=== PATIENT | female | born 1930 | race Caucasian/White ===

== ENCOUNTER 2016-12-01 08:25 | Inpatient (IN) | payer MEDICARE ==
[2016-11-25 13:19] LABS: BASOPHILS 0.9 %; BASOPHILS ABSOLUTE 0.05 10/3/uL (0.0-0.16); EOSINOPHILS 3.8 %; HEMATOCRIT 35.8 % (36.0-48.0); HEMOGLOBIN 11.4 g/dL (12.0-16.0); IMMATURE GRANULOCYTES 0.2 %; IMMATURE GRANULOCYTES ABSOLUTE 0.01 10/3/uL (0.0-0.11); LYMPHOCYTES ABSOLUTE 2.38 10/3/uL (0.67-4.30); MANUAL DIFF NO %; MEAN CORPUS HGB CONC 31.8 g/dL (32.0-36.0); MEAN CORPUSCULAR VOLUME 94.2 fL (80-100); MEAN PLATELET VOLUME 11.9 fL (9.2-13.0); MONOCYTES 14.9 %; MONOCYTES ABSOLUTE 0.79 10/3/uL (0.21-1.20); NEUTROPHILS 35.2 %; NEUTROPHILS ABSOLUTE 1.86 10/3/uL (2.02-8.40); PLATELET COUNT 224 10/3/uL (150-400); RBC DISTRIBUTION WIDTH 15.4 % (12.0-16.0); WHITE BLOOD CELLS 5.3 10/3/uL (4.5-10.5)
[2016-11-25 13:20] LABS: INTERNATIONAL NORMAL RATI 1.6 UNITS (-); PROTIME (NOT ORD) 18.5 SEC (12.0-14.5)
[2016-11-25 13:35] LABS: B NATRIURETIC PEPTIDE (BNP) 463.9 PG/ML (< 100.0)
[2016-11-25 14:17] LABS: ALBUMIN 3.9 G/DL (3.5-5.0); ALKALINE PHOSPHATASE 90 U/L (45-117); ASCORBIC ACID (UR NOT ORDER) NEG (NEG); BILIRUBIN, URINE NEGATIVE (NEG); BUN (BLOOD UREA NITROGEN) 27 MG/DL (6-23); CALCIUM, SERUM 9.3 MG/DL (8.5-10.4); CHLORIDE, SERUM 99 MMOL/L (96-112); CO2 (CARBON DIOXIDE) 28 MMOL/L (24-34); CREATININE 1.14 MG/DL (0.55-1.02); GFR AFRICAN AMERICAN 50 ML/MIN (>=60); GFR NON AFRICAN AMERICAN 43 ML/MIN (>=60); GLOBULIN 3.9 G/DL (2.5-4.1); GLUCOSE, SERUM 101 MG/DL (60-99); KETONE, URINE NEGATIVE (NEG); LEUKOCYTE ESTERASE(NOT OR NEG (NEG); POTASSIUM, SERUM 4.1 MMOL/L (3.5-5.3); SGOT(AST) 24 U/L (5-40); SGPT(ALT) 17 U/L (5-65); SODIUM, SERUM 138 MMOL/L (135-148); TOTAL PROTEIN 7.8 G/DL (6.0-8.5); WBC (NOT ORDERED) (RFLEX) 1 (0-5)
--- NOTE | ~2016-12-01 | OP ---
Record Of Operation [facility] [address] [place]. [address] NAME: LOC FIORE : [birth year] STATUS : ADM IN PAT#: [id number] AGE: 86 ADM/REG DATE : 12/01/16 MR#: [id number] REPORT SERV DATE: 12/01/16 DICTATED BY: CODEY MORALES DATE: 12/01/16 REPORT STATUS : Draft TRANSCRIBED BY: MARIO DATE: 12/01/16 DATE OF PROCEDURE: TAVR NOTE PROCEDURE: Right transfemoral transcatheter aortic valve replacement using Otero 23 mm S3 valve. INDICATION FOR PROCEDURE: Ms. Loc Fiore is an 86-year-old woman with severe aortic stenosis. She also has history of hyperlipidemia, atrial fibrillation, prior anterior infarct, coronary artery disease, and hypertension. Her aortic valve area by echocardiogram was 0.9, by catheterization the valve area was 0.6. The peak gradient was 38 by catheterization, peak gradient 44 by echocardiogram. She was seen by Dr. Trivedi and Dr. Fish. Dr. Fish felt she was a high risk for surgical aortic valve replacement. She was thus referred for the transcatheter aortic valve replacement. She presented to [place] [facility] [employer] class 4 symptoms. Her predicted mortality with STS score is 7.1%, predicted morbidity mortality of 25%, predicted mortality by the EuroSCORE is 4.2%. POSTOPERATIVE DIAGNOSES: Successful implantation of the Otero 26 mm S3 valve via the right transfemoral approach. OPERATORS: 1. Cong Fish M.D. 2. Codey Morales M.D. 3. Regino Alvarez M.D. OPERATIVE TECHNIQUE: The patient was prepped and draped in the usual sterile fashion. She received propofol, MAC, anesthesia. She was not intubated. She had a right heart catheter in position and a radial A-line. She did not have a Bowman catheter. The right groin and left groin were anesthetized with lidocaine 1% 12 mL. Access to both arteries were obtained using micropuncture technique, angiogram confirmed access to common femoral arteries. The 6-[place] sheaths were placed in both arteries, as well as a 6-[place] sheath in the left femoral vein. A pacemaker was placed through the left femoral vein to allow rapid ventricular pacing. A pigtail was placed in the left femoral artery to allow valve positioning. Two ProGlide sutures were placed in the right femoral artery at the 10 o'clock and 2 o'clock position in the pre-close technique. The 6-[place]atorial [place] was replaced, multipurpose catheter was delivered over a J-wire, that was exchanged for a Lunderquist wire. We then removed the 6- [place] sheath and placed the Otero sheath. She received heparin IV before placement of that sheath, activating clotting time remained therapeutic. Record Of Operation [place] [id number] [place]. [address] NAME: LOC FIORE : [birth year] STATUS : ADM IN PAT#: [id number] AGE: 86 ADM/REG DATE : 12/01/16 MR#: [id number] REPORT SERV DATE: 12/01/16 DICTATED BY: CODEY MORALES DATE: 12/01/16 REPORT STATUS : Draft TRANSCRIBED BY: MARIO DATE: 12/01/16 We crossed the aortic valve without difficulty using an AL1 diagnostic catheter and a straight wire. The valve was exchanged for a [place] double-lumen catheter over exchange length J-wire. Simultaneous pressures were obtained between the left ventricle and ascending aorta. We then placed the valve. The valve was positioned precisely. With rapid ventricular pacing, the valve was deployed. There was mild AI after placing the valve. An additional 2 mL of contrast were placed in that valve delivery balloon. The valve delivery balloon was placed through the valve, and with rapid ventricular pacing, the balloon was inflated. Repeat echocardiogram demonstrated no aortic insufficiency after that post deployment inflation. The right femoral artery sheath was removed, both ProGlide sutures were tightened. Completion of angiogram demonstrated no stenosis and no extravasation. The left femoral artery sheath was removed, and that artery was closed with a ProGlide device as well. The pacemaker was left in place. The total rapid pacing time was 40 seconds. The actual time of valve deployment was at 13:27. The cardiac output pre-deployment is 3.5 L/min, post-deployment 4 L/minute. The valve area pre-deployment is 0.9 cm2, post-deployment 2.8 cm2. The blood pressure pre- deployment was 124/44, mean of 69, heart rate 58. Post-deployment blood pressure was 118/45, mean of 70, heart rate, 60. The valve gradient pre-deployment was 36 mmHg mean, 38 mm peak to peak. Post-deployment, the mean gradient was 6, the peak to peak gradient 2 mmHg. Total contrast volume is 70 mL. Total fluoro time was 10.5 minutes. The blood loss was less than 50 mL. Total radiation dose was 844 mGy. The AI index was 34. There was no aortic insufficiency by chest wall echo or by thoracic aortogram. In short, the patient had deployment of the Otero 26 mm S3 valve with a right transfemoral approach. She received MAC anesthesia. The gradient decreased from 38 mm to 2 mm. The valve area increased from 0.9 to 2.8 cm2. There was no AI by echo or by thoracic aortogram, the AI index was 34. The patient will treated with aspirin, Eliquis, and clopidogrel initially. After 1 month, aspirin will be stopped. Pacemaker will remain in place overnight because of bundle branch block that developed during this procedure. Record Of Operation [place] [id number] [facility] [place]. [address] NAME: LOC FIORE : [birth year] STATUS : ADM IN [facility]#: [id number] AGE: 86 ADM/REG DATE : 12/01/16 MR#: [id number] REPORT SERV DATE: 12/01/16 DICTATED BY: CODEY MORALES DATE: 12/01/16 REPORT STATUS : Draft TRANSCRIBED BY: MARIO DATE: 12/01/16 JOSIE/MARIO Codey Morales M.D. / [id number] CC: Cong Fish M.D.
--- NOTE | ~2016-12-01 | OP ---
Record Of [place] [id number] [facility] [place]. [address] NAME: LOC MARIN : [birth year] STATUS : ADM IN PAT#: [id number] AGE: 86 ADM/REG DATE : 12/01/16 MR#: [id number] REPORT SERV DATE: 12/01/16 DICTATED BY: EMELIA FISH DATE: 12/01/16 REPORT STATUS : Draft TRANSCRIBED BY: MODAnnamarie DATE: 12/01/16 DATE OF PROCEDURE: 12/01/2016 PREOPERATIVE DIAGNOSES: 1. Aortic valve stenosis. 2. Coronary artery disease with previous history of PTCA and stenting of the coronary arteries. 3. Previous myocardial infarction. 4. Hypertension. 5. Paroxysmal atrial fibrillation. POSTOPERATIVE DIAGNOSES: 1. Aortic valve stenosis. 2. Coronary artery disease with previous history of PTCA and stenting of the coronary arteries. 3. Previous myocardial infarction. 4. Hypertension. 5. Paroxysmal atrial fibrillation. PROCEDURE PERFORMED: 1. Right transfemoral transcatheter aortic valve replacement using a 23 mm pericardial valve (23 S3, Otero). 2. Left transfemoral venous temporary pacing catheter insertion. 3. Ascending aortography. 4. Aorto-iliofemoral angiography. 5. Perclose closure of the right femoral artery x2, left femoral artery x1. 6. Transthoracic echocardiography. SURGEONS: 1. Emelia Fish M.D. 2. Regino Alvarez M.D. 3. Олег Trivedi MD. AEROBICS TEACHER: Neeraj Chavez M.D., Ph.D, F.A.C.C. ANESTHESIA: MAC with Dr. Knight. CHROMIUM PLATER: Lasha Lincoln MD. INDICATIONS: This is an 86-year-old female who has history of coronary artery disease with previous myocardial infarction and stenting of the coronaries in the past. She also has a known aortic valve stenosis. Earlier this year, she was hospitalized for acute on chronic congestive heart failure symptoms and severe shortness of breath. She was found to have significant aortic valve stenosis on echocardiography. The ventricular function was good with an ejection fraction of 55%. Valve area was 0.95 sq m with a peak gradient of 43 mmHg. There was mild mitral insufficiency and mean aortic insufficiency seen on echo. Cardiac Record Of [place] [address] [facility] [place]. [address] NAME: LOC MARIN : [birth year] STATUS : ADM IN PAT#: [id number] AGE: 86 ADM/REG DATE : 12/01/16 MR#: [id number] REPORT SERV DATE: 12/01/16 DICTATED BY: EMELIA FISH DATE: 12/01/16 REPORT STATUS : Draft TRANSCRIBED BY: MARIO DATE: 12/01/16 catheterization demonstrated coronary artery disease with stents patent. There was a long stent in the LAD with minimal antegrade flow. It was felt the patient should undergo medical treatment of the LAD. Pulmonary artery pressure is moderately elevated at 44/13 mmHg. The patient was evaluated for possible surgical aortic valve replacement and predicted mortality was greater than 7% with morbidity and mortality greater than 25%. She failed walk test and strength test and was felt to be extremely high risk for surgical aortic valve replacement. She was presented at the transcatheter valve conference and it was felt the patient would be a good candidate for transcatheter aortic valve replacement. This was discussed with the patient and her family and they wished to proceed. FINDINGS AT OPERATION: 1. Total time of rapid pacing was 40 seconds. 2. Actual time of TAVR deployment was 1327 hours. 3. Pre-deployment cardiac output of 3.5, post-deployment cardiac output of 4.0 L/minute. 4. Pre-deployment valve area of 0.86, post-deployment valve area of 2.83 sq cm. 5. Pre-implant aortic pressures: Systolic 124, diastolic 44, mean 69 mmHg. Post- deployment aortic pressures: Systolic 118, diastolic 45, mean 70 mmHg. 6. Pre-implant AV gradient mean 36, peak 38 mmHg. Post-implant AV gradient mean 6, peak 2 mmHg. Total contrast volume used 70 mL. 7. Fluoro time 10.5 minutes. 8. Estimated blood loss 50 mL. 9. Total milligray used 844. 10.Aortic index was 34. 11.We performed a balloon valvuloplasty following deployment of the valve with 2 additional mL of contrast with resolution of small perivalvular leak. 12.There was no femoral vessel injury seen on iliofemoral angiography. 13.The patient had good pedal pulses at the end of the procedure. PATHOLOGIC SPECIMEN: None. DESCRIPTION OF PROCEDURE: The patient was brought to the operating suite where she was laid in a supine position. MAC sedation with Diprivan was administered by Anesthesia. Lines were placed by Anesthesia preoperatively. The patient's abdomen and groin were prepped with Hibiclens and ChloraPrep and draped with Ioban and sterile sheets. A microneedle was placed in the right femoral artery and guidewire and then angiography performed for confirmation of placement. A 6-Swiss introducer was placed in the right femoral artery and secured. Then, using a similar technique, the left femoral artery was accessed and 6-Swiss introducer placed after angiography confirmation of placement of wire. The left femoral vein was accessed with a 6-Swiss guidewire and a 6-Swiss introducer was placed over the guidewire once access was obtained and confirmed with fluoroscopy. Transvenous pacemaker was placed up the left femoral venous sheath and positioned in the right ventricle and output confirmed with pacemaker. Then, a pigtail catheter was advanced over a guidewire into the ascending aorta and at the aortic root and placed in the noncoronary cusp and contrast aortography performed for confirmation of angles for deployment of the valve. Record Of Operation [place] [id number] [facility] [place]. [address] NAME: LOC MARIN : [birth year] STATUS : ADM IN PAT#: [id number] AGE: 86 ADM/REG DATE : 12/01/16 MR#: [id number] REPORT SERV DATE: 12/01/16 DICTATED BY: EMELIA FISH DATE: 12/01/16 REPORT STATUS : Draft TRANSCRIBED BY: MARIO DATE: 12/01/16 Next, exchange catheter was placed in the descending thoracic aorta and a Lunderquist wire was advanced into the ascending aorta. Then, using the Otero sheath, this was advanced over the Lunderquist wire into the descending thoracic aorta. Then, an AL1 catheter advanced into the ascending aorta just above the valve and the Lunderquist wire removed. Then, a straight soft wire was advanced across the valve through the AL1 catheter. Next, a Hammad catheter was advanced over a pigtail wire into the left ventricle and simultaneous pressure recordings made of the ventricular and aortic pressures. Heparin had been administered earlier by Anesthesia. Next, an extra-stiff wire was placed across the Hammad catheter into the left ventricle. The 23 S3 valve was advanced over the extra-stiff wire into the descending thoracic aorta where the balloon and rock loader were backed onto the valve. We then advanced the valve and catheter over the arch of the aorta, to the ascending aorta, and across the valve. Then, rapid pacing was performed and aortography was used to confirm proper positioning of the transcatheter valve. The valve was then deployed using balloon dilatation. Once this was accomplished, the deployment system was backed off from the valve. Echocardiography demonstrated mild aortic insufficiency. 2 mL of additional contrast were placed into the balloon and apparatus was then repositioned across the valve. Then, under rapid ventricular pacing, the balloon was reinflated with the additional 2 mL. Then, the balloon was deflated and the deployment apparatus was brought back into the descending thoracic aorta. JAIR examination at this point demonstrated no significant aortic insufficiency. The valve did look did look slightly lower and there was a bundle branch block present on EKG at this time. Next, the valve deployment catheter was removed from the sheath. A floppy guidewire was placed through the sheath into the aorta and sheath removed. The Perclose devices were deployed and the sutures cut. The pigtail catheter originally in ascending aorta was brought down to the level of the aortic bifurcation and right aorto-iliofemoral angiography performed documenting no injury to the right femoral vessel. Then, the guidewire was advanced through the pigtail catheter on the left side and the pigtail catheter and 6-Swiss sheaths removed from the left femoral artery. The Perclose device was then loaded over the wire and advanced and deployed in the right femoral artery. Finally, under fluoroscopic visualization, the [place]-David catheter was removed. The temporary venous pacemaker catheter was left in place and secured to the skin. The patient tolerated the procedure and there were no complications. DISPOSITION: The patient was taken from the operating room to the intensive care unit in stable condition with good pulses in the feet and awake. Record Of Operation [facility] [address] [facility] [place]. [address] NAME: LOC MARIN : [birth year] STATUS : ADM IN [facility]#: [id number] AGE: 86 ADM/REG DATE : 12/01/16 MR#: [id number] REPORT SERV DATE: 12/01/16 DICTATED BY: EMELIA FISH DATE: 12/01/16 REPORT STATUS : Draft TRANSCRIBED BY: MARIO DATE: 12/01/16 MEKHI/MARIO Emelia Fish M.D. / [id number] CC: Jenny Wilder M.D. Mark Thel, M.D.
[~2016-12-01 08:25] MED LIST: APRES50 PO; ASAB PO; CARTIA XT120 MG/24 PO; CARTIA XT180 MG/24 PO; COREG6 PO; ELIQUIS 5 MG TAB5 MG PO; HALF81 PO; HYDROCHLOROT12.5 MG PO; JANTOVEN3 MG PO; JANTOVEN4 MG PO; L40 PO; LIPITOR10 PO; LOP25 PO; LOVENOX80 SC; NORV5 PO; PLAVIX PO; PRIN20 PO; PROVHFA INH; SYSTANE OPH; ZESTRIL40 MG PO; ZOCOR20 PO
[2016-12-01 15:15] LABS: HEMOGLOBIN 9.9 g/dL (12.0-16.0); PLATELET COUNT 170 10/3/uL (150-400)
[2016-12-01 15:16] LABS: HEMATOCRIT 30.7 % (36.0-48.0)
[2016-12-01 15:22] LABS: INTERNATIONAL NORMAL RATI 1.5 UNITS (-); PROTIME (NOT ORD) 17.8 SEC (12.0-14.5)
[2016-12-01 15:26] LABS: BUN (BLOOD UREA NITROGEN) 26 MG/DL (6-23); CHLORIDE, SERUM 108 MMOL/L (96-112); CO2 (CARBON DIOXIDE) 24 MMOL/L (24-34); CREATININE 0.85 MG/DL (0.55-1.02); GFR AFRICAN AMERICAN 71 ML/MIN (>=60); GFR NON AFRICAN AMERICAN 61 ML/MIN (>=60); GLUCOSE, SERUM 93 MG/DL (60-99); POTASSIUM, SERUM 3.5 MMOL/L (3.5-5.3); SODIUM, SERUM 142 MMOL/L (135-148)
[2016-12-01 15:28] LABS: CALCIUM, SERUM 8.2 MG/DL (8.5-10.4)
[2016-12-01 15:35] LABS: PARTIAL THROMBO TIME > 150.0 SEC (22.5-37.2)
[2016-12-01 20:26] LABS: HEMATOCRIT 28.7 % (36.0-48.0); HEMOGLOBIN 9.2 g/dL (12.0-16.0)
[2016-12-02 05:46] LABS: BASOPHILS 0.4 %; BASOPHILS ABSOLUTE 0.03 10/3/uL (0.0-0.16); EOSINOPHILS 1.6 %; EOSINOPHILS ABSOLUTE 0.12 10/3/uL (0.0-0.53); HEMATOCRIT 29.7 % (36.0-48.0); HEMOGLOBIN 9.3 g/dL (12.0-16.0); IMMATURE GRANULOCYTES 0.3 %; IMMATURE GRANULOCYTES ABSOLUTE 0.02 10/3/uL (0.0-0.11); LYMPHOCYTES 25.1 %; LYMPHOCYTES ABSOLUTE 1.87 10/3/uL (0.67-4.30); MEAN CORPUS HGB CONC 31.3 g/dL (32.0-36.0); MEAN CORPUSCULAR HEMOGLOB 29.2 pg (26.0-34.0); MEAN CORPUSCULAR VOLUME 93.4 fL (80-100); MEAN PLATELET VOLUME 10.8 fL (9.2-13.0); MONOCYTES 12.1 %; NEUTROPHILS 60.5 %; NEUTROPHILS ABSOLUTE 4.52 10/3/uL (2.02-8.40); PLATELET COUNT 170 10/3/uL (150-400); RBC DISTRIBUTION WIDTH 15.5 % (12.0-16.0); RED CELL COUNT 3.18 10/6/uL (4.0-5.6)
[2016-12-02 05:48] LABS: BUN (BLOOD UREA NITROGEN) 23 MG/DL (6-23); CALCIUM, SERUM 8.6 MG/DL (8.5-10.4); CHLORIDE, SERUM 111 MMOL/L (96-112); CO2 (CARBON DIOXIDE) 22 MMOL/L (24-34); CREATININE 0.86 MG/DL (0.55-1.02); GFR AFRICAN AMERICAN 70 ML/MIN (>=60); GFR NON AFRICAN AMERICAN 60 ML/MIN (>=60); POTASSIUM, SERUM 3.8 MMOL/L (3.5-5.3); SODIUM, SERUM 143 MMOL/L (135-148)
[2016-12-02 05:49] LABS: GLUCOSE, SERUM 121 MG/DL (60-99)
[2016-12-02 06:02] LABS: MANUAL DIFF NO %; WHITE BLOOD CELLS 7.5 10/3/uL (4.5-10.5)
[2016-12-02 07:46] LABS: BE (BASE EXCESS) -1.7 MEQ/L (0 +/- 2.5); CARBOXYHEMOGLOBIN 0.3 % (0-3); HCO3 (ACTUAL BICARBONATE) 21.7 MEQ/L (23-27); INSTRUMENT SERIAL # 11843; METHEMOGLOBIN 0.5 % (0-3); O2 CONTENT 13.6 VOL% (18-24); OPERATOR ID 23712; PCO2 (CO2 TENSION) 32 MMHG (35-45); PO2 (O2 TENSION) 91 MMHG (79-93); SAMPLE Arterial; pH 7.45 (7.37-7.43)
[2016-12-02 16:29] LABS: HEMOGLOBIN 8.8 g/dL (12.0-16.0)
[2016-12-03 05:11] LABS: BASOPHILS 0.3 %; BASOPHILS ABSOLUTE 0.02 10/3/uL (0.0-0.16); EOSINOPHILS 1.8 %; EOSINOPHILS ABSOLUTE 0.13 10/3/uL (0.0-0.53); HEMATOCRIT 26.4 % (36.0-48.0); HEMOGLOBIN 8.4 g/dL (12.0-16.0); IMMATURE GRANULOCYTES 0.1 %; IMMATURE GRANULOCYTES ABSOLUTE 0.01 10/3/uL (0.0-0.11); LYMPHOCYTES 22.3 %; MEAN CORPUS HGB CONC 31.8 g/dL (32.0-36.0); MEAN CORPUSCULAR VOLUME 94.3 fL (80-100); MEAN PLATELET VOLUME 10.3 fL (9.2-13.0); MONOCYTES ABSOLUTE 1.36 10/3/uL (0.21-1.20); NEUTROPHILS 56.5 %; NEUTROPHILS ABSOLUTE 4.05 10/3/uL (2.02-8.40); PLATELET COUNT 138 10/3/uL (150-400); RBC DISTRIBUTION WIDTH 15.6 % (12.0-16.0); WHITE BLOOD CELLS 7.2 10/3/uL (4.5-10.5)
[2016-12-03 05:14] LABS: CALCIUM, SERUM 8.7 MG/DL (8.5-10.4); CHLORIDE, SERUM 111 MMOL/L (96-112); CO2 (CARBON DIOXIDE) 24 MMOL/L (24-34); CREATININE 0.88 MG/DL (0.55-1.02); GFR AFRICAN AMERICAN 68 ML/MIN (>=60); GFR NON AFRICAN AMERICAN 59 ML/MIN (>=60); GLUCOSE, SERUM 111 MG/DL (60-99); POTASSIUM, SERUM 4.2 MMOL/L (3.5-5.3); SODIUM, SERUM 144 MMOL/L (135-148)
[2016-12-03 05:22] LABS: MANUAL DIFF NO %
[2016-12-03 05:23] LABS: BUN (BLOOD UREA NITROGEN) 19 MG/DL (6-23)
[2016-12-03] MEDS ORDERED: PLAVIX PO ×2 (08:57→10:15)
[2016-12-03] MEDS ORDERED: PRIN20 PO (08:58)
== END 2016-12-03 11:30 | disposition home or self-care (01) | DRG 266 ==
LOC: SDC/OF 08:25 → CVICU 13:36
PROVIDERS: Thoracic Surgery (Cardiothoracic Vascular Surgery)
PROC: 02RF38Z Replacement of Aortic Valve with Zooplastic Tissue, Percutaneous Approach (ICD-10-PCS; principal; 2016-12-01 13:30)
PROC: B246YZZ Ultrasonography of Right and Left Heart using Other Contrast (ICD-10-PCS; 2016-12-01 13:30)
DX: I35.0 Nonrheumatic aortic (valve) stenosis (principal); I50.33 Acute on chronic diastolic (congestive) heart failure; I48.0 Paroxysmal atrial fibrillation; I27.2 Other secondary pulmonary hypertension; I10 Essential (primary) hypertension; I25.10 Atherosclerotic heart disease of native coronary artery without angina pectoris; Z95.5 Presence of coronary angioplasty implant and graft; I25.2 Old myocardial infarction; Z00.6 Encounter for examination for normal comparison and control in clinical research program; E78.5 Hyperlipidemia, unspecified
CPT/HCPCS: 36415; 71010; 80048; 80053; 81001; 82330; 82803; 82805; 82947; 82962; 83036; 83735; 83880; 84132; 84295; 85014; 85018; 85025; 85049; 85347; 85610; 85730; 86850; 86900; 86901; 87641; 93005; 93312; 93320; 93325; A9270-GY; C1751; C1760; C1769; C1894; C8929; J0690; J1644; J2250; J2370; J2720; J3010; Q9957